=== PATIENT | male | born 1965 | race Caucasian/White ===

== ENCOUNTER → 2017-01-21 | Outpatient (CLI) | payer OTHER | END | disposition home or self-care (01) | LOC: RAD 16:02 | PROVIDERS: ATTEND Nurse Practitioner | DX: J45.909 Unspecified asthma, uncomplicated (principal); J98.11 Atelectasis | CPT/HCPCS: 71020 ==

== ENCOUNTER 2017-03-15 17:38 | Inpatient (IN) | payer OTHER ==
[~2017-03-15] VITALS: Ht 177.8 cm; Wt 121.0 kg
[2017-03-15] MEDS ORDERED: DILTIAZEM 5 MG/ML, 5ML IVPush ONE (17:40)
[2017-03-15] MEDS ORDERED: DILTIAZEM 125 MG in DEXTROSE 5% 100 ML IV SCH (17:40)
[2017-03-15] MEDS ORDERED: ANTI-INFLAMMATORY (17:50)
[2017-03-15] MEDS ORDERED: ALPR-475 PO (17:50)
[2017-03-15] MEDS ORDERED: DILTIAZEM 5 MG/ML, 5ML ONE (17:55)
[2017-03-15] MEDS ORDERED: ASPIRIN 81 MG TABLET CHEW ONE (17:55)
[2017-03-15] MEDS ORDERED: ASPIRIN 81 MG TABLET CHEW PO ONE (18:00)
[2017-03-15] MEDS ORDERED: SODIUM CHLORIDE 0.9%, 500ML IVBOLUS ONE ×2 (18:00→20:00)
[2017-03-15 18:06] LABS: ASPARTATE AMINO TRANSFERASE 101 U/L (15-37); BLOOD UREA NITROGEN 14 mg/dL (7-18)
[2017-03-15 18:12] LABS: IS PT STATUS REG ER OR PRE ER? YES
[2017-03-15] MEDS ORDERED: ENOXAPARIN 120MG/0.8ML SQ ONE (19:00)
[2017-03-15] MEDS ORDERED: OMNIPAQUE 350 MG/ML, 100ML BOTTLE ONE (20:31)
[2017-03-15] MEDS ORDERED: BISACODYL 10 MG SUPP PR PRN (22:00)
[2017-03-15] MEDS ORDERED: POLYETHYLENE GLYCOL 17 GM PACKET PO PRN (22:00)
[2017-03-15] MEDS ORDERED: ONDANSETRON 2MG/ML, 2ML IVP PRN (22:00)
[2017-03-15] MEDS ORDERED: DILTIAZEM 125 MG in SODIUM CHLORIDE 0.9% 100 ML IV SCH (22:00)
[2017-03-15] MEDS ORDERED: ACETAMINOPHEN 325 MG TABLET PO PRN (22:00)
[2017-03-15 22:08] VITALS: BP 136/92
[2017-03-16 01:12] LABS: IS PT STATUS REG ER OR PRE ER? NO
[2017-03-16 03:07] VITALS: BP 110/82
[2017-03-16] MEDS: SODIUM CHLORIDE FLUSH 10ML SYR IVF SCH ×3 (06:29→19:41)
[2017-03-16 06:43] VITALS: BP 111/80
[2017-03-16 07:53] LABS: ASPARTATE AMINO TRANSFERASE 71 U/L (15-37); BLOOD UREA NITROGEN 15 mg/dL (7-18)
[2017-03-16 08:07] LABS: IS PT STATUS REG ER OR PRE ER? NO
[2017-03-16] MEDS: SENNA/DOCUSATE TABLET PO SCH (09:04)
[2017-03-16] MEDS: ENOXAPARIN 120MG/0.8ML SQ SCH ×2 (09:04→19:41)
[2017-03-16] MEDS: METOPROLOL TARTRATE 25 MG TABLET PO SCH ×2 (09:51→17:16)
[2017-03-16] MEDS: DILTIAZEM 125 MG in SODIUM CHLORIDE 0.9% 100 ML IV SCH ×2 (11:00→17:56)
[2017-03-16 13:10] VITALS: BP 120/77
[2017-03-16 17:18] VITALS: BP 114/82
[2017-03-16 19:15] VITALS: BP 108/76
[2017-03-16] MEDS ORDERED: PNEUMOCOCCAL 23 VACCINE IM-VACC ONE (20:30)
[2017-03-16] MEDS ORDERED: DILTIAZEM 125 MG in SODIUM CHLORIDE 0.9% 100 ML IV SCH (22:00)
[2017-03-16] MEDS: ATORVASTATIN 20 MG TABLET PO SCH (22:06)
[2017-03-17 00:54] VITALS: BP 110/77
[2017-03-17 05:07] LABS: ASPARTATE AMINO TRANSFERASE 42 U/L (15-37); BLOOD UREA NITROGEN 16 mg/dL (7-18)
[2017-03-17] MEDS: METOPROLOL TARTRATE 25 MG TABLET PO SCH (05:23)
[2017-03-17 06:37] VITALS: BP 112/80
[2017-03-17] MEDS: LISINOPRIL 10 MG TABLET PO SCH (08:23)
[2017-03-17] MEDS: ENOXAPARIN 120MG/0.8ML SQ SCH (08:23)
[2017-03-17] MEDS: SENNA/DOCUSATE TABLET PO SCH (08:31)
[2017-03-17] MEDS: SODIUM CHLORIDE FLUSH 10ML SYR IVF SCH ×2 (08:31→20:38)
[2017-03-17] MEDS ORDERED: POTASSIUM CHLORIDE 20 MEQ TAB.ER.PRT PO ONE (10:30)
[2017-03-17 11:26] LABS: HEPATITIS C VIRUS ANTIBODY Nonreactive (Nonreactive)
[2017-03-17] MEDS ORDERED: REGADENOSON 0.4 MG/5 ML SYRINGE ONE (11:45)
[2017-03-17] MEDS ORDERED: METOPROLOL TARTRATE 25 MG TABLET PO SCH (13:30)
[2017-03-17 13:31] VITALS: BP 107/71
[2017-03-17] MEDS ORDERED: METOPROLOL TARTRATE 25 MG TABLET PO ONE (13:35)
[2017-03-17 13:48] VITALS: BP 111/79
[2017-03-17] MEDS ORDERED: FUROSEMIDE 20 MG/2 ML IV ONE (14:00)
[2017-03-17] MEDS: DIGOXIN 0.25 MG/ML, 2ML IVPush SCH ×2 (14:43→20:39)
[2017-03-17] MEDS ORDERED: POTASSIUM CHLORIDE 20 MEQ TAB.ER.PRT ONE (17:18)
[2017-03-17] MEDS ORDERED: METOPROLOL 1 MG/ML, 5ML IVPush PRN (17:30)
[2017-03-17 18:55] VITALS: BP 104/68
[2017-03-17 20:37] VITALS: BP 114/71
[2017-03-17] MEDS: APIXABAN 5 MG TABLET PO SCH (20:38)
[2017-03-17] MEDS: ATORVASTATIN 20 MG TABLET PO SCH (20:38)
[2017-03-18 02:58] VITALS: BP 121/81
[2017-03-18] MEDS: DIGOXIN 0.25 MG/ML, 2ML IVPush SCH (03:00)
[2017-03-18 05:29] VITALS: BP 110/73
[2017-03-18] MEDS: METOPROLOL SUCCINATE 50 MG TAB.ER.24H PO SCH (05:30)
[2017-03-18 07:53] VITALS: BP 130/89
[2017-03-18] MEDS: SODIUM CHLORIDE FLUSH 10ML SYR IVF SCH (08:00)
[2017-03-18] MEDS: APIXABAN 5 MG TABLET PO SCH ×2 (08:00→20:01)
[2017-03-18] MEDS: LISINOPRIL 10 MG TABLET PO SCH ×2 (08:00→20:02)
[2017-03-18] MEDS ORDERED: DILTIAZEM 5 MG/ML, 5ML IVPush ONE (09:30)
[2017-03-18] MEDS ORDERED: SODIUM CHLORIDE 0.9% 1,000 ML IV SCH (09:30)
[2017-03-18] MEDS ORDERED: PROPOFOL 10 MG/ML, 20ML ONE (12:38)
[2017-03-18 13:00] VITALS: BP 116/87
[2017-03-18 13:44] VITALS: BP 113/75
[2017-03-18 19:34] VITALS: BP 104/73
[2017-03-18] MEDS: ATORVASTATIN 20 MG TABLET PO SCH (20:00)
[2017-03-19 04:00] VITALS: BP 109/70
[2017-03-19] MEDS: SODIUM CHLORIDE FLUSH 10ML SYR IVF SCH ×2 (04:25→08:15)
[2017-03-19 05:48] LABS: ASPARTATE AMINO TRANSFERASE 36 U/L (15-37); BLOOD UREA NITROGEN 14 mg/dL (7-18)
[2017-03-19] MEDS: METOPROLOL SUCCINATE 50 MG TAB.ER.24H PO SCH (08:13)
[2017-03-19] MEDS: LISINOPRIL 10 MG TABLET PO SCH (08:14)
[2017-03-19] MEDS: APIXABAN 5 MG TABLET PO SCH (08:14)
[2017-03-19 08:23] VITALS: BP 99/65
[2017-03-19] MEDS ORDERED: APIX5TAB PO (09:57)
[2017-03-19] MEDS ORDERED: LISI-167 PO (09:57)
[2017-03-19] MEDS ORDERED: METO-93 PO (09:57)
== END 2017-03-19 12:20 | disposition home or self-care (01) | DRG 308 ==
LOC: ED 19:21 → EDIP 20:12 → 5SO 21:13 → DCLOUNGE 03-19 11:42
PROVIDERS: ADMIT Internal Medicine; ATTEND Internal Medicine
PROC: B246ZZ4 Ultrasonography of Right and Left Heart, Transesophageal (ICD-10-PCS; 2017-03-18)
PROC: 5A2204Z Restoration of Cardiac Rhythm, Single (ICD-10-PCS; principal; 2017-03-18 13:00)
DX: I48.91 Unspecified atrial fibrillation (principal); I50.41 Acute combined systolic (congestive) and diastolic (congestive) heart failure; D68.69 Other thrombophilia; G89.29 Other chronic pain; G47.33 Obstructive sleep apnea (adult) (pediatric); D75.89 Other specified diseases of blood and blood-forming organs; F12.90 Cannabis use, unspecified, uncomplicated; E66.9 Obesity, unspecified; J44.9 Chronic obstructive pulmonary disease, unspecified; F41.9 Anxiety disorder, unspecified; I42.9 Cardiomyopathy, unspecified; I11.0 Hypertensive heart disease with heart failure; F10.20 Alcohol dependence, uncomplicated; F17.210 Nicotine dependence, cigarettes, uncomplicated; Z82.49 Family history of ischemic heart disease and other diseases of the circulatory system; Z80.1 Family history of malignant neoplasm of trachea, bronchus and lung; Z80.0 Family history of malignant neoplasm of digestive organs; Z91.013 Allergy to seafood; Z68.38 Body mass index [BMI] 38.0-38.9, adult
CPT/HCPCS: 36415; 71010; 71275; 78452; 80053; 80061; 80074; 80307; 82607; 82746; 83735; 84436; 84443; 84484; 85025; 90732; 92960; 93005; 93017; 93306; 93312; 93321; 93325; 96361; 96372; 96374; J1650; J2704; J2785; Q9967; A9502; C9898; J1160; J1940; J7030; J7040

== ENCOUNTER 2017-05-26 09:58 | Emergency (ER) | payer SELFPAY ==
[~2017-05-26] VITALS: Ht 177.8 cm; Wt 118.0 kg
[~2017-05-26 09:58] MED LIST: ALPR-475 PO; ANTI-INFLAMMATORY; APIX5TAB PO; LISI-167 PO; METO-93 PO
[2017-05-26 10:05] VITALS: BP 126/80
[2017-05-26] MEDS ORDERED: LORazepam 1MG TABLET ONE (11:15)
[2017-05-26] MEDS ORDERED: LORazepam 1MG TABLET PO ONE (11:30)
[2017-05-26 12:10] LABS: BLOOD UREA NITROGEN 18 mg/dL (7-18)
[2017-05-26 12:11] LABS: IS PT STATUS REG ER OR PRE ER? YES
== END 2017-05-26 13:13 | disposition home or self-care (01) ==
LOC: ED 12:50
DX: R00.2 Palpitations (principal); F41.1 Generalized anxiety disorder; I48.91 Unspecified atrial fibrillation; G89.29 Other chronic pain; M54.9 Dorsalgia, unspecified; Z87.891 Personal history of nicotine dependence; F12.10 Cannabis abuse, uncomplicated
CPT/HCPCS: 36415; 71010; 80048; 82040; 84439; 84443; 84484; 85025; 93005; 99285

== ENCOUNTER → 2017-12-01 | Outpatient (CLI) | payer MEDICAID, MEDICARE | END | disposition home or self-care (01) | LOC: CVU 09:08 | PROVIDERS: ATTEND Internal Medicine Cardiovascular Disease | DX: I42.9 Cardiomyopathy, unspecified (principal); I10 Essential (primary) hypertension; I48.91 Unspecified atrial fibrillation | CPT/HCPCS: 93306 ==

== ENCOUNTER → 2017-12-09 | Outpatient (CLI) | payer MEDICAID | LOC: RAD 14:36 | PROVIDERS: ATTEND Family Medicine | DX: M79.672 Pain in left foot (principal) ==

== ENCOUNTER → 2018-01-12 | Outpatient (CLI) | payer MEDICAID | LOC: EDSTATUS 01-07 13:15 → CFH 08:10 | PROVIDERS: ATTEND Family Medicine | DX: K40.90 Unilateral inguinal hernia, without obstruction or gangrene, not specified as recurrent (principal) | CPT/HCPCS: 76857 ==

== ENCOUNTER → 2018-02-09 | Outpatient (CLI) | payer MEDICAID | LOC: CFH 15:18 | PROVIDERS: ATTEND Family Medicine | DX: N43.3 Hydrocele, unspecified (principal); I86.1 Scrotal varices | CPT/HCPCS: 76870; 93975 ==

== ENCOUNTER → 2018-05-07 | Outpatient (CLI) | payer MEDICAID | END | disposition home or self-care (01) | LOC: CFH 07:06 | PROVIDERS: ATTEND Family Medicine | DX: M47.896 Other spondylosis, lumbar region (principal); M51.37 Other intervertebral disc degeneration, lumbosacral region; M48.07 Spinal stenosis, lumbosacral region; M54.16 Radiculopathy, lumbar region | CPT/HCPCS: 72110; 72148 ==

== ENCOUNTER → 2018-12-08 | Outpatient (CLI) | payer MEDICAID | END | disposition home or self-care (01) | LOC: CVU 12:36 | PROVIDERS: ATTEND Internal Medicine Cardiovascular Disease | DX: I42.9 Cardiomyopathy, unspecified (principal); I48.91 Unspecified atrial fibrillation; E78.5 Hyperlipidemia, unspecified; I10 Essential (primary) hypertension; Z87.891 Personal history of nicotine dependence | CPT/HCPCS: 93306 ==

== ENCOUNTER 2019-11-14 08:00 | Outpatient (CLI) | payer MEDICAID ==
[~2019-11-14 08:00] MED LIST changes: -ALPR-475 PO; +ALPR0.5T7 PO
== END 2019-11-14 23:59 | disposition home or self-care (01) ==
LOC: CVU 08:00
PROVIDERS: ATTEND Internal Medicine Cardiovascular Disease
DX: I42.9 Cardiomyopathy, unspecified (principal); I10 Essential (primary) hypertension; I48.91 Unspecified atrial fibrillation; E78.5 Hyperlipidemia, unspecified; Z72.0 Tobacco use
CPT/HCPCS: 93306

== ENCOUNTER 2020-07-06 17:29 | Emergency (ER) | payer MEDICAID ==
[~2020-07-06] VITALS: Ht 175.3 cm; Wt 115.0 kg
[2020-07-06 19:16] VITALS: BP 130/78
--- NOTE | 2020-07-06 19:30 | NUR ---
PT AMBULATED TO ROOM WITH STEADY GAIT. PT PREVIOUSLY PROVIDED A UA THAT WAS SENT TO LAB. PT UPDATED ON POC, AWAITING LAB TO DRAW.
[2020-07-06 19:57] LABS: MICROSCOPIC NOT IND
[2020-07-06] MEDS ORDERED: SODIUM CHLORIDE FLUSH 10ML SYR IVF ONE (20:00)
[2020-07-06 20:17] LABS: ALBUMIN 3.7 g/dL (3.4-5.0); ANION GAP 4 mmol/L (5-15); CALCIUM 8.7 mg/dL (8.5-10.1); CHLORIDE 108 mmol/L (98-107); CREATININE 0.74 mg/dL (0.7-1.3)
[2020-07-06 20:30] LABS: BASOPHILS # (AUTO) 0.03 x10^3/uL (0-0.1); BASOPHILS % (AUTO) 0 % (0-1); EOSINOPHILS # (AUTO) 0.28 x10^3/uL (0-0.4); EOSINOPHILS % (AUTO) 4 % (1-7); LYMPHOCYTES # (AUTO) 2.88 x10^3/uL (1-3.4); LYMPHOCYTES % (AUTO) 40 % (22-44); MD NO; MEAN CORPUSCULAR HGB CONC 33.9 g/dL (33.2-36.2); MEAN CORPUSCULAR VOLUME 100.4 fL (81-97); MEAN PLATELET VOLUME 7.3 fL (7.4-10.4); MONOCYTES # (AUTO) 0.66 x10^3/uL (0.2-0.8); MONOCYTES % (AUTO) 9 % (2-9); NEUTROPHILS % (AUTO) 47 % (42-75); PLATELET COUNT 236 x10^3/uL (130-400); RED BLOOD COUNT 4.51 x10^6/uL (4.38-5.82); RED CELL DISTRIBUTION WIDTH 13.5 % (9.4-14.8)
[2020-07-06] MEDS ORDERED: OMNIPAQUE 350 MG/ML, 100ML BOTTLE ONE (23:12)
== END 2020-07-06 22:12 | disposition home or self-care (01) ==
LOC: ED 19:36
DX: S39.012A Strain of muscle, fascia and tendon of lower back, initial encounter (principal); R10.32 Left lower quadrant pain; R11.0 Nausea; F17.210 Nicotine dependence, cigarettes, uncomplicated; I48.91 Unspecified atrial fibrillation; X58.XXXA Exposure to other specified factors, initial encounter; Y93.89 Activity, other specified; Y92.89 Other specified places as the place of occurrence of the external cause; Y99.8 Other external cause status
CPT/HCPCS: 36415; 74177; 80048; 81003; 82040; 85025; 99285; Q9967

== ENCOUNTER → 2020-11-21 | Outpatient (CLI) | payer MEDICAID ==
[~2020-11-21] MED LIST changes: +REGADENOSON 0.4 MG/5 ML SYRINGE ONE
== END | disposition home or self-care (01) ==
LOC: CVU 06:43
PROVIDERS: ATTEND Internal Medicine Cardiovascular Disease
DX: I48.0 Paroxysmal atrial fibrillation (principal); I42.9 Cardiomyopathy, unspecified
CPT/HCPCS: 78452; 93017; 93306; A9502; J2785

== ENCOUNTER 2020-12-17 03:47 | Emergency (ER) | payer MEDICAID ==
[~2020-12-17] VITALS: Ht 177.8 cm; Wt 115.0 kg
[~2020-12-17 03:47] MED LIST changes: -REGADENOSON 0.4 MG/5 ML SYRINGE ONE
[2020-12-17 05:13] LABS: BASOPHILS % (AUTO) 1 % (0-1); EOSINOPHILS % (AUTO) 4 % (1-7); LYMPHOCYTES % (AUTO) 29 % (22-44); MEAN CORPUSCULAR HEMOGLOBIN 34.4 pg (27.5-34.5); MEAN CORPUSCULAR HGB CONC 34.3 g/dL (33.2-36.2); MEAN PLATELET VOLUME 6.7 fL (7.4-10.4); MONOCYTES % (AUTO) 10 % (2-9); NEUTROPHILS % (AUTO) 57 % (42-75); PLATELET COUNT 257 x10^3/uL (130-400); RED BLOOD COUNT 4.22 x10^6/uL (4.38-5.82); RED CELL DISTRIBUTION WIDTH 13.6 % (9.4-14.8)
[2020-12-17 05:17] LABS: MD NO
[2020-12-17 05:22] LABS: ALBUMIN 3.3 g/dL (3.4-5.0); ANION GAP 7 mmol/L (5-15); CALCIUM 8.4 mg/dL (8.5-10.1); CHLORIDE 107 mmol/L (98-107)
[2020-12-17 05:28] VITALS: BP 136/82
[2020-12-17 05:28] LABS: ALANINE AMINOTRANSFERASE 25 U/L (12-78); ALKALINE PHOSPHATASE 53 U/L (45-117); BILIRUBIN,TOTAL 0.4 mg/dL (0.2-1.0); CREATININE 0.71 mg/dL (0.7-1.3); TOTAL PROTEIN 6.5 g/dL (6.4-8.2); TROPONIN I < 0.015 ng/mL (0.000-0.045)
--- NOTE | 2020-12-17 05:42 | NUR ---
PT RESTING IN BED, PT ON MONITOR WITH PT VSS.
== END 2020-12-17 06:34 | disposition home or self-care (01) ==
LOC: ED 06:00
DX: R06.00 Dyspnea, unspecified (principal); R07.9 Chest pain, unspecified; I10 Essential (primary) hypertension; I48.91 Unspecified atrial fibrillation; Z87.891 Personal history of nicotine dependence; Z79.01 Long term (current) use of anticoagulants
CPT/HCPCS: 36415; 71045; 80053; 83880; 84484; 85025; 93005; 99285

== ENCOUNTER → 2021-01-10 | Outpatient (CLI) | payer MEDICAID | END | disposition home or self-care (01) | LOC: RAD 13:18 | DX: S73.101A Unspecified sprain of right hip, initial encounter (principal); M16.0 Bilateral primary osteoarthritis of hip; M25.452 Effusion, left hip; M25.451 Effusion, right hip; K40.20 Bilateral inguinal hernia, without obstruction or gangrene, not specified as recurrent; K57.30 Diverticulosis of large intestine without perforation or abscess without bleeding; M25.751 Osteophyte, right hip; X58.XXXA Exposure to other specified factors, initial encounter; Y93.89 Activity, other specified; Y92.89 Other specified places as the place of occurrence of the external cause; Y99.8 Other external cause status ==